=== PATIENT | male | born 1995 | race Two or more races ===

== ENCOUNTER 2021-08-11 18:33 | Emergency (ER) | payer SELFPAY ==
[~2021-08-11] VITALS: Ht 182.9 cm; Wt 97.3 kg
[2021-08-11 18:48] VITALS: BP 143/71
[2021-08-11] MEDS ORDERED: ASPIRIN CHEWABLE 81 MG TABLET. PO ONE (19:15)
[2021-08-11 19:29] LABS: BASO # 0.1 x10^3/uL (0.0-0.2); BASO % 1 % (0-3); EOS # 0.2 x10^3/uL (0.0-0.7); EOS % 2 % (0-3); HEMATOCRIT 40.5 % (39.0-53.0); HEMOGLOBIN 14.2 g/dL (13.0-17.5); LYMPH % 31 % (24-48); MEAN CORPUSCULAR HEMOGLOBIN 34 pg (25-35); MEAN CORPUSCULAR HGB CONC 35 g/dL (31-37); MEAN CORPUSCULAR VOLUME 96 fL (79-100); MONO # 0.4 x10^3/uL (0.0-1.1); MONO % 7 % (0-9); NEUT # 3.6 x10^3/uL (1.8-7.7); NEUT % 58 % (31-73); PLATELET COUNT 233 x10^3/uL (140-400); RED BLOOD COUNT 4.21 x10^6/uL (4.30-5.70); RED CELL DISTRIBUTION WIDTH 13.5 % (11.5-14.5); WHITE BLOOD COUNT 6.3 x10^3/uL (4.0-11.0)
[2021-08-11 19:54] LABS: CALCIUM 9.4 mg/dL (8.5-10.1); CREATININE 0.9 mg/dL (0.7-1.3); GFR 103.7; POTASSIUM 4.6 mmol/L (3.5-5.1)
[2021-08-11 20:00] LABS: ALBUMIN 3.8 g/dL (3.4-5.0); ALBUMIN/GLOBULIN RATIO 1.3 (1.0-1.7); TOTAL BILIRUBIN 0.6 mg/dL (0.2-1.0); TOTAL PROTEIN 6.7 g/dL (6.4-8.2)
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
--- NOTE | 2021-08-16 09:24 | EKG ---
[facility] [address] [place] [address] Test Date: 2021-08-11 Test Time: 18:42:38 Pat Name: INGRID MONTIEL Department: Room: Gender: M Form Layer: : 1995 Requested By: FANNY DELACRUZ Order Number: [id number] Reading MD: Geoff Kent MD Measurements Intervals [place] Rate: 69 P: 16 MO: 164 QRS: 91 QRSD: 98 T: 26 QT: 358 QTc: 385 Interpretive Statements SINUS RHYTHM Electronically Signed On 08-16-2021 11:32:47 CDT by Geoff Kent MD
== END 2021-08-11 22:13 | disposition left against medical advice (07) ==
LOC: ER 18:33
DX: R07.89 Other chest pain (principal); M25.512 Pain in left shoulder; F31.9 Bipolar disorder, unspecified; F20.9 Schizophrenia, unspecified
CPT/HCPCS: 36415; 71046; 73030; 80053; 83690; 83880; 84484; 85025; 93005; 99285-25